=== PATIENT | female | born 1945 | race African-American/Black ===

== ENCOUNTER → 2017-01-30 | Outpatient (CLI) | payer OTHER ==
[~2017-01-30] MED LIST: ADULT LOW DOSE81 MG PO; ALEVE220 M1 PO; ANTIVERT25 MG PO; ASPIRIN81 M2 PO; BYSTOLIC 5 MG5 M1 PO; CEPACOL SORE T1 EAC7 PO; COD LIVER OIL1 EAC4 PO; CYMBALTA60 MG PO; FISH OIL 1,0001 EAC5 PO; HYDROCODON-ACE1 EAC5 PO; HYDROCODON-ACE1 EAC7 PO; HYDROCODON-ACE1 EAC8 PO; LEVOTHYROXINE 0.1 MG PO; LISINOPRIL10 MG PO; LOPRESSOR25 PO; MAG-AL PLUS SUS30 ML PO; MECLIZINE HCL12.5 MG PO; METHIMAZOLE5 MG; MULTIVITAMINS PO; NABUMETONE 500500 M1 PO; NAPROSYN500 MG PO; NEURONTIN 300300 M1 PO; NORCO 10-325 T1 EACH; NORCO 5-325 TA1 EACH PO; NORVASC 5 MG TAB5 MG PO; ONDANSETRON ODT4 MG SUBLING; OXYCONTIN10 M1 PO; PERCOCET 5-3251 EACH PO; PREDNISONE 20 M20 MG PO; RANITIDINE 150150 M1 PO; RANITIDINE HCL300 M1 PO; ROBAXIN 750 MG750 M1 PO; SYNTHROID25 MCG PO; SYNTHROID75 MCG PO; TAPAZOLE5 MG PO; TRAMADOL 50 MG50 MG PO; TRAMADOL HCL50 MG PO; TRAVATAN Z5 ML OPHTHALMIC; TUMS PO; TYLENOL325 MG PO; VITAMIN B-12100 MC1 PO; VITAMIN D1000 UNI1 PO; VITAMIN D32000 UNIT PO; VITAMIN E400 UNIT PO; ZANTAC 150MG T150 M1 PO; ZOFRAN ODT4 MG PO; ZOFRAN4 MG PO; ZYRTEC10 M2 PO
== END ==
LOC: RAD 02:20
DX: Z12.31 Encounter for screening mammogram for malignant neoplasm of breast (principal)

== ENCOUNTER → 2017-04-16 | Outpatient (CLI) | payer OTHER | LOC: RAD 14:09 | DX: Z00.01 Encounter for general adult medical examination with abnormal findings (principal); M19.042 Primary osteoarthritis, left hand ==

== ENCOUNTER → 2017-07-29 | Outpatient (CLI) | payer OTHER | LOC: CAT 10:47 | DX: R91.1 Solitary pulmonary nodule (principal) ==

== ENCOUNTER → 2018-02-06 | Outpatient (CLI) | payer OTHER | LOC: RAD 01:08 | DX: Z12.31 Encounter for screening mammogram for malignant neoplasm of breast (principal) ==

== ENCOUNTER 2018-02-26 16:47 | Emergency (ER) | payer OTHER ==
[~2018-02-26] VITALS: Ht 165.1 cm; Wt 94.8 kg
== END 2018-02-26 19:52 | disposition home or self-care (01) ==
LOC: ER 16:47
DX: G43.909 Migraine, unspecified, not intractable, without status migrainosus (principal); I10 Essential (primary) hypertension; E03.9 Hypothyroidism, unspecified; K21.9 Gastro-esophageal reflux disease without esophagitis; Z88.8 Allergy status to other drugs, medicaments and biological substances

== ENCOUNTER → 2018-05-19 | Outpatient (CLI) | payer OTHER | LOC: RAD 12:18 | DX: R59.1 Generalized enlarged lymph nodes (principal) ==

== ENCOUNTER 2019-02-20 19:49 | Emergency (ER) | payer OTHER ==
[~2019-02-20] VITALS: Ht 165.1 cm; Wt 94.8 kg
[2019-02-20 22:10] VITALS: BP 194/101
== END 2019-02-20 22:10 | disposition home or self-care (01) ==
LOC: ER 19:49
DX: G43.909 Migraine, unspecified, not intractable, without status migrainosus (principal); I10 Essential (primary) hypertension; E03.9 Hypothyroidism, unspecified; K21.9 Gastro-esophageal reflux disease without esophagitis; G47.30 Sleep apnea, unspecified; Z90.710 Acquired absence of both cervix and uterus; Z85.528 Personal history of other malignant neoplasm of kidney; Z90.5 Acquired absence of kidney; Z86.73 Personal history of transient ischemic attack (TIA), and cerebral infarction without residual deficits; Z88.8 Allergy status to other drugs, medicaments and biological substances

== ENCOUNTER → 2019-03-11 | Outpatient (CLI) | payer OTHER | LOC: RAD 02:44 | DX: Z12.31 Encounter for screening mammogram for malignant neoplasm of breast (principal) ==

== ENCOUNTER → 2019-04-01 | Outpatient (CLI) | payer OTHER ==
[~2019-04-01] VITALS: Ht 165.1 cm; Wt 96.2 kg
[~2019-04-01] MED LIST changes: +ASPIR 8181 MG PO; +NORVASC5 MG PO; +RANITIDINE HCL300 MG PO; +SYNTHROID125 MC1 PO; +XALATAN2.5 ML OPHTHALMIC
--- NOTE | 2019-04-03 08:29 | P ---
[facility] [place] [address] PROCEDURE REPORT Name: MARIA A DE LA CRUZ Room #: REG [facility]#: [id number] Admission: 04/01/19 ������������������ Attend Phys: Gabriel Johnston Discharge: ������������������ Date of : 47 Report #: [id number] THIS REPORT FOR: //name// CC: Gabriel Moran MD DATE OF SERVICE: 04/01/2019 PROCEDURE PERFORMED: Colonoscopy with polypectomies. HISTORY OF PRESENT ILLNESS: The patient is a 73-year-old female who presents today for routine screening colonoscopy. She denies any symptoms. No family history of colon cancer. DESCRIPTION OF PROCEDURE: The risks and benefits of the procedure were explained to the patient, those risks including but not limited to bleeding, perforation and the risk of sedation. She understood these risks and gave informed consent. Sedation was given using propofol per Anesthesia. Next, a digital rectal exam was initially performed, which was normal. Next, using a standard Olympus colonoscope, the scope was placed in the patient's anus and advanced under direct vision to the cecum. The overall prep was excellent. In the cecum, there was a 1 cm partially pedunculated polyp. This was removed by snare cautery, otherwise normal. The ileocecal valve was normal. The ascending, transverse and descending colon were normal. In the sigmoid colon, there was a 5 mm sessile polyp. This was removed by cold forceps. The rectal mucosa was normal. On retroflexion, no abnormalities were noted. The scope was then withdrawn and the procedure terminated. The patient tolerated the procedure well. IMPRESSION: 1. Two colonic polyps. 2. Otherwise, normal colonoscopy. RECOMMENDATIONS: 1. Await biopsy results. 2. Repeat colonoscopy in 5 years. Thank you for allowing me to participate in her care. ��������������������������������������������� <ELECTRONICALLY SIGNED> ���������������������������������������� By: Gabriel Aparicio MD ��������������������������������������������� 04/03/19 0829 [id number] Gabriel Aparicio MD /nt
--- NOTE | 2019-04-03 10:06 | PATH ---
[facility] [place] [address] PATHOLOGY RPT PROCEDURE Name: MARIA A HICKEY Osmin Room #: REG CORY Reyes.#: [id number] ������������������ Admission: 04/01/19 ������������������ Date of : 47 Discharge: Report #: [id number] Path Case #: [id number] [facility] Accession Number: [id number] . 01 Material submitted: . PART A: cecum - POLYP AT CECUM PART B: colon - BX POLYP AT SIGMOID COLON. Modifiers: sigmoid . 01 Clinical history: . Pre-OP DX: Screening Post-OP DX: Colon polyps . 02 Diagnosis: A. 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 - Negative for high-grade dysplasia. . B. Polyp, at sigmoid colon, endoscopic biopsy: - Compatible with a hyperplastic polyp and a lymphoid aggregate. . (IUV:mary; 04/02/2019) MBR/04/02/2019 . 02 Electronically signed: . Jeanie Guajardo MD, Pathologist NPI- [id number] . 01 Gross description: . A. Received in formalin labeled "Maria A Hickey, polyp at cecum," is a 0.8 x 0.7 x 0.7 cm polypoid piece of juarez soft tissue. The presumed margin is inked and the tissue is sectioned perpendicular to the margin and submitted in its entirely in cassette A1 and A2. . B. Received in formalin labeled "Maria A Hickey, BX polyp at sigmoid colon," are 2 segments of juarez soft tissue measuring 0.7 x 0.2 x 0.2 cm in aggregate dimensions and ranging from 0.3 to 0.4 cm in maximum dimension. The specimen is submitted entirely in cassette B1. (TSD; 04/01/2019) TOB/TOB . 02 Pathologist provided ICD-10: D12.0, K63.5 . 02 CPT . 126465, 676421 Specimen Comment: A courtesy [place] of [place] [address] PATHOLOGY RPT PROCEDURE Name: MARIA A HICKEY [id number] ������������������ Admission: 04/01/19 ������������������ Date of : 47 Discharge: Report #: [id number] Path Case #: [id number] Specimen Comment: [phone], . Specimen Comment: Report sent to / DR HATHAWAY Specimen Comment: A duplicate report has been generated due to demographic updates. Performed at: [address] [facility], [place], [place] [id number] MD Jeffy Padilla MD Phone: [phone] Performed at: [address] [facility] [id number] MD Jeanie Guajardo MD Phone: [phone]
== END | disposition home or self-care (01) ==
LOC: GI 09:25
DX: Z12.11 Encounter for screening for malignant neoplasm of colon (principal); D12.0 Benign neoplasm of cecum; K63.5 Polyp of colon; I10 Essential (primary) hypertension; K21.9 Gastro-esophageal reflux disease without esophagitis; G43.909 Migraine, unspecified, not intractable, without status migrainosus; Z98.890 Other specified postprocedural states; Z85.528 Personal history of other malignant neoplasm of kidney; Z90.5 Acquired absence of kidney; Z90.710 Acquired absence of both cervix and uterus; Z98.41 Cataract extraction status, right eye; Z98.51 Tubal ligation status; Z86.73 Personal history of transient ischemic attack (TIA), and cerebral infarction without residual deficits; Z90.89 Acquired absence of other organs; Z79.82 Long term (current) use of aspirin; Z79.899 Other long term (current) drug therapy; Z88.8 Allergy status to other drugs, medicaments and biological substances
CPT/HCPCS: 62110; 62900

== ENCOUNTER → 2019-06-01 | Outpatient (CLI) | payer OTHER | LOC: CAT 14:48 | DX: R91.8 Other nonspecific abnormal finding of lung field (principal); R59.1 Generalized enlarged lymph nodes; Z88.8 Allergy status to other drugs, medicaments and biological substances ==

== ENCOUNTER 2020-01-01 06:07 | Emergency (ER) | payer OTHER ==
[~2020-01-01] VITALS: Ht 165.1 cm; Wt 96.2 kg
[2020-01-01 07:18] LABS: ABSOLUTE NEUTROPHILS 2.7 thou/uL (1.4-8.2); BASOPHILS 0.9 % (0.0-2.0); EOSINOPHILS 2.3 % (0.0-3.0); HEMATOCRIT 40.1 % (37.0-47.0); HEMOGLOBIN 12.8 gm/dL (12.0-15.0); LYMPHOCYTES 32.1 % (24.0-44.0); MCH 26.9 pg (26.0-34.0); MCHC 31.8 g/dL (28.0-37.0); MCV 84.5 fL (80.0-100.0); MONOCYTES 5.9 % (1.0-8.0); PLATELET COUNT 229 thou/uL (150-400); POLYS 58.8 % (36.0-66.0); RBC 4.75 mil/uL (4.20-5.00); RDW 17.5 % (10.5-14.5); WBC 4.5 thou/uL (4.0-11.0)
[2020-01-01 07:24] LABS: CALCIUM 9.1 mg/dL (8.5-10.1); CREATININE 0.8 mg/dL (0.6-1.0)
[2020-01-01 07:29] LABS: POTASSIUM 4.4 mmol/L (3.5-5.1)
[2020-01-01] MEDS ORDERED: BUTALB-APAP-CA1 EACH PO (08:51)
[2020-01-01] MEDS ORDERED: COMPAZINE10 M2 PO (08:51)
[2020-01-01 09:09] VITALS: BP 150/77
== END 2020-01-01 09:10 | disposition home or self-care (01) ==
LOC: ER 06:07
PROVIDERS: Emergency Medicine
DX: R51 Headache (principal); R11.2 Nausea with vomiting, unspecified; I10 Essential (primary) hypertension; K21.9 Gastro-esophageal reflux disease without esophagitis; G47.30 Sleep apnea, unspecified; Z90.49 Acquired absence of other specified parts of digestive tract; Z90.710 Acquired absence of both cervix and uterus; Z86.73 Personal history of transient ischemic attack (TIA), and cerebral infarction without residual deficits; Z98.51 Tubal ligation status; Z90.5 Acquired absence of kidney; Z88.8 Allergy status to other drugs, medicaments and biological substances

== ENCOUNTER → 2020-04-05 | Outpatient (CLI) | payer OTHER ==
[~2020-04-05] MED LIST changes: +BUTALB-APAP-CA1 EACH PO; +COMPAZINE10 M2 PO
== END ==
LOC: BC 12:18
DX: Z12.31 Encounter for screening mammogram for malignant neoplasm of breast (principal)

== ENCOUNTER → 2020-05-12 | Outpatient (CLI) | payer OTHER | LOC: CAT 14:04 | PROVIDERS: ATTEND Pediatrics | DX: R91.8 Other nonspecific abnormal finding of lung field (principal); J98.4 Other disorders of lung; K76.89 Other specified diseases of liver ==

== ENCOUNTER → 2020-05-24 | Outpatient (CLI) | payer OTHER | LOC: SJCVC 13:55 | DX: I10 Essential (primary) hypertension (principal); R00.1 Bradycardia, unspecified; E78.00 Pure hypercholesterolemia, unspecified; E78.1 Pure hyperglyceridemia; G47.33 Obstructive sleep apnea (adult) (pediatric); R91.1 Solitary pulmonary nodule; Z79.899 Other long term (current) drug therapy; Z86.73 Personal history of transient ischemic attack (TIA), and cerebral infarction without residual deficits ==

== ENCOUNTER → 2020-11-01 | Outpatient (CLI) | payer OTHER | LOC: RAD 13:06 | PROVIDERS: ATTEND Nurse Practitioner | DX: M51.16 Intervertebral disc disorders with radiculopathy, lumbar region (principal); M48.061 Spinal stenosis, lumbar region without neurogenic claudication; M43.26 Fusion of spine, lumbar region ==

== ENCOUNTER → 2020-11-22 | Outpatient (CLI) | payer OTHER ==
[~2020-11-22] VITALS: Ht 292.1 cm; Wt 96.2 kg
[~2020-11-22] MED LIST changes: +FISH OIL 1,001000 M3 PO; +HAIR SKIN NAIL1 EACH PO; +IBUPROFEN200 M1 PO; +MIRALAX119 GM PO; +MULTI VITAMIN1 EACH PO; +NOXIFOL-D32500 UNIT PO; +TOPROL XL50 MG PO; +VITAMIN B-121000 MC2 PO; +VITAMIN C1000 MG PO
--- NOTE | ~2020-11-22 | HPC ---
[facility] [place] [address] PAIN MANAGEMENT CONSULTATION Name: MARIA A DE LA CRUZ Room #: REG CORY Louise#: [id number] Admission: 11/22/20 Attend Phys: Nick Peña DO Discharge: Date of : 47 Report #: [id number] THIS REPORT FOR: cc: Yojana Acevedo DNP, Mary E. DNP Johnson, James E. DO ~ DATE OF SERVICE: 11/22/2020 REFERRING PHYSICIAN: KARELY Gant CHIEF COMPLAINT: Low back pain, bilateral lower extremity pain with paresthesias. HISTORY OF PRESENT ILLNESS: As you know, the patient is a 75-year-old female who reports onset of low back pain, bilateral lower extremity pain that began on 10/02/2020. The patient denies injury or trauma that may have led to symptom development. She states that she trialed conservative treatment, such as ywse-ftl-zfckrne medications, rest, and relaxation, but did not note much in the way of improvement. She reports longstanding low back pain, status post fusion for L4-L5 lumbar radiculopathy, which was performed in 2012. She stated that this new onset of symptoms began without inciting injury or trauma and progressively worsened. She sought evaluation through her primary care team who trialed initially prednisone therapy and sent her for CT scan of the lumbar spine. The findings were such, the patient was then referred to our clinic, as it was noted she has severe central canal stenosis at the L2-L3 level, the area just above her fusion. The patient reports today her pain is constant. She describes the pain as aching and tender, places current pain score 9/10, daily average at 8-9/10, worst pain has been is 9/10. The patient states that bending down, walking, and standing exacerbates symptoms and improves with lying down. She has been referred to our service to discuss treatment options for severe central canal stenosis. PAST MEDICAL HISTORY: 1. Hypertension. 2. Chronic kidney disease. 3. Hypothyroidism. 4. GERD. 5. Degenerative joint disease. 6. Osteoarthritis. 7. History of stroke with minimal residual deficits. 8. Chronic low back pain, status post fusion. 9. Seasonal allergies. PAST SURGICAL HISTORY: [facility] [address] [place] [address] PAIN MANAGEMENT CONSULTATION Name: MARIA A DE LA CRUZ [id number] Admission: 11/22/20 Attend Phys: Nick Peña DO Discharge: Date of : 46 Report #: [id number] 1. Fusion of L4-L5 in 2012. 2. Right leg surgery. 3. Bilateral eye surgery. 4. Thyroid surgery. 5. Kidney surgery. 6. Breast biopsy. 7. Hysterectomy. SOCIAL HISTORY: The patient denies tobacco, alcohol, IV or illicit drug use. She retired in 06/2006. She is receiving disability income. She is not in litigation in regards to pain. She is unaccompanied at today's visit. REVIEW OF SYSTEMS: Positive for eye disease, wearing corrective eyewear, cataracts, hearing loss with tinnitus, mouth sores, shortness of breath with walking or lying flat, constipation, rectal bleeding, history of stroke with no residual deficits, thyroid disease, heat and cold intolerance, and low back pain. All other review of systems negative per 12-point review of systems other than those listed in history of present illness. Pain impact score 48/70 indicating moderate to severe interference of daily activities secondary to pain. ALLERGIES: LOSARTAN. CURRENT MEDICATIONS: Ibuprofen 200 mg 4 times a day, tramadol 50 mg 3 times a day, ascorbic acid 1 tab per day, MiraLax 17 grams per day, multivitamin 1 tab per day, cyanocobalamin 1000 mcg per day, omega-3 fish oil 1200 mg once a day, metoprolol 50 mg once a day, latanoprost 1 drop each eye per day, vitamin E 400 units once a day, levothyroxine 125 mcg per day, and aspirin 81 mg per day. IMAGING: CT of the lumbar spine obtained on 11/01/2020 shows postoperative changes of posterior fusion at the L4-L5 level. There is a grade 1 anterolisthesis at this level. At L3-L4, there is grade 1 anterolisthesis. There appears to be severe central canal stenosis at L2-L3 due to a combination of degenerative changes. PQRS: The patient has known arthritic changes of the lumbar spine, reports bilateral hip osteoarthritis. No rheumatoid arthritis. Places current pain score at 8/10. She is a fall risk, has not had a fall in last 3 months, but does use a cane for ambulation. She is not on blood thinners, but is treated for hypertension. She is not on opioids and has a low opiate addiction potential. Pain impact score 48/70, mfvwfzcq-fb-bilijy interference of daily activities secondary to pain. PHYSICAL EXAMINATION: VITAL SIGNS: Blood pressure 145/73, pulse 57, respiratory rate 18 and unlabored. The patient is 98% on room air. Height 5 feet 5 inches tall, weight [facility] [address] [place] [address] PAIN MANAGEMENT CONSULTATION Name: MARIA A DE LA CRUZ Room #: REG Pretty Reyes#: [id number] Admission: 11/22/20 Attend Phys: Nick Peña DO Discharge: Date of : 46 Report #: [id number] 212 pounds. HEENT: Normocephalic, atraumatic. Pupils equal, round and reactive to light. Extraocular muscles are intact. The patient is wearing a mask in compliance with COVID-19 regulations. LUNGS: Appear clear. She is able to complete sentences without difficulty. No audible wheezing or cough. CARDIOVASCULAR: Appears regular. No appreciable gallop, no rub. ABDOMEN: Soft, obese, normoactive bowel sounds. EXTREMITIES: Show no clubbing, no cyanosis. No appreciable edema. MUSCULOSKELETAL: Lower extremity strength appears symmetrical, but deconditioned. She is intact to light touch from L1 through S2 dermatomes. Seated straight leg raising negative. Supine straight leg raising is positive on the right. Dom's test negative. Modified Gaenslen's positive for axial low back pain. Ankle clonus negative. Babinski is negative. Deep tendon reflexes are decreased, but symmetrical. ASSESSMENT: 1. Symptomatic lumbar radiculopathy. 2. Severe central canal stenosis of lumbar spine. 3. Displacement of lumbar intervertebral disk with radiculopathy. 4. Lumbosacral spondylosis with radiculopathy. 5. Lumbar degeneration. 6. Failed lumbar spine surgery. 7. Chronic intractable pain. PLAN: 1. The patient has been referred to our clinic to discuss the options for treatment for suspected lumbar radiculopathy. We have reviewed the patient's CT examination, which unfortunately shows severe central canal stenosis at L2-L3 level secondary to degenerative changes. There is an anterolisthesis at L3-L4 and fusion at L4-L5. The symptoms the patient is experiencing do appear to be related to the L2-L3 level. We discussed the findings and how they correlate to her current symptoms. The following was discussed with the patient today for treatment options. We discussed with the patient today treatment options would include physical therapy, stretching exercises, and concerted effort at weight loss. We discussed suggestions in medication management, adding neuropathic pain medications, and a consistent nonsteroidal anti-inflammatory. We discussed lumbar epidural injections under fluoroscopic guidance for which the patient was referred to our clinic. We also discussed surgical options, which given the severity of the stenosis at the L2-L3 level, will likely be necessary. After reviewing risks and benefits of all proposed treatment options, the patient chose to begin with an epidural injection under fluoroscopic guidance. The patient has been advised risks and benefits of a lumbar epidural injection. [address] [address] PAIN MANAGEMENT CONSULTATION Name: MARIA A DE LA CRUZ Room #: REG CORY Gil#: [id number] Admission: 11/22/20 Attend Phys: Nick Peña DO Discharge: Date of : 46 Report #: [id number] These risks include but are not necessarily limited to bleeding, bruising, infection, worsening pain, no relief of pain, also risk of temporary or permanent muscle weakness, temporary or permanent nerve damage, possible paralysis, and . The patient states understood and wished to proceed. 2. No medication changes made at today's visit. The patient will continue current medical therapy as prior prescribed. 3. We plan to see the patient back in followup visit in approximately 1 month. At that time, review the efficacy of today's epidural injection and determine next in the series of epidural injections would be recommended. 4. We wish to thank nurse practitioner, Yojana Acevedo, for the opportunity to see this patient in consultation. We will keep you apprised of response to treatment as we address suspected lumbar radicular symptoms secondary to severe central canal stenosis. Again, we wish to thank you for the opportunity to see the patient in consultation. PROCEDURE NOTE DESCRIPTION OF PROCEDURE: L2-L3 interlaminar epidural steroid injection under fluoroscopic guidance. This is the first procedure of the first series that the patient is undergoing. After obtaining written consent, the patient was taken back to the fluoroscopy suite, placed in a prone position with pillow under the abdomen to decrease lumbar lordosis. The skin overlying the lumbosacral area was then prepped and draped in aseptic fashion. The L2-L3 vertebral interspace was then identified by AP fluoroscopy. The skin and subcutaneous tissue overlying the target site of injection was anesthetized with 3 mL 1% lidocaine. A 20-gauge 4-1/2-inch Tuohy needle was then advanced under fluoroscopic guidance towards the epidural space using a parasagittal approach. The epidural space was identified using loss of resistance to air technique. After negative aspiration for heme or cerebrospinal fluid, a total of 1 mL of Omnipaque was injected. A lumbar epidurogram was confirmed using both AP and lateral fluoroscopy. After negative aspiration for heme or cerebrospinal fluid, 5 mL of a solution containing 2 mL 40 mg per mL, 80 mg total triamcinolone along with 3 mL of lidocaine 1% was injected in increments. Contrast spread was noted posterior epidural space. The needle was then retracted approximately half way and needle tract flushed with 1 mL of 1% lidocaine. Needle was then removed. There were no apparent sensory or motor deficits in the lower extremity following the procedure. A sterile bandage was placed over the injection site. The heart rate, pulse, oximetry and blood pressure were continuously monitored after the procedure. There were no apparent complications. The patient tolerated the procedure well and was carefully escorted to the recovery room in [address] [address] PAIN MANAGEMENT CONSULTATION Name: MARIA A DE LA CRUZ Room #: REG CLPretty [facility]y#: [id number] Admission: 11/22/20 Attend Phys: Nick Peña DO Discharge: Date of : 46 Report #: [id number] stable condition. There were no apparent complications. After meeting discharge criteria, the patient was then discharged home. By: 1658 1741 Nick Peña DO /nt
[2020-11-22 13:37] VITALS: BP 145/73
--- NOTE | 2020-11-22 14:17 | NUR ---
Pain Clinic Assessment: 1. History of Osteoarthritis: BACK History of Rheumatoid Arthritis: 2. Height: 5 ft. 55 in. 292.1 cm. Weight: 212.0 lb. oz. 96.163 kg. Patient's BMI: 11.3 3. Vital Signs: BP: 145/73 Pulse: 57 Resp: 18 Temp: 02 Sat: 98 ECG Mon: 4. Pain Intensity: 8 5. Fall Risk: Dizziness: Y Needs help standing or walking: Y Fallen in the last 3 months: N Fall risk comments: 6. Patient on Blood Thinner: None 7. History of Hypertension: Y 8. Opioid Therapy greater than 6 weeks: N Opiate Contract Signed: 9. Risk Assessment Tool Provided: 0 LOW RISK 10. Functional Assessment Tool: 11. Recreational Drug Use: Never Drug Type: Tobacco Use: Never Smoker Tobacco Type: Amount or Packs/day: How Many Years: Alcohol Use: No Frequency: Quant:
== END | disposition home or self-care (01) ==
LOC: PAIN 06:58
PROVIDERS: ATTEND Anesthesiology Pain Medicine
DX: M51.16 Intervertebral disc disorders with radiculopathy, lumbar region (principal); M48.061 Spinal stenosis, lumbar region without neurogenic claudication; M47.27 Other spondylosis with radiculopathy, lumbosacral region; M96.1 Postlaminectomy syndrome, not elsewhere classified; G89.29 Other chronic pain; I12.9 Hypertensive chronic kidney disease with stage 1 through stage 4 chronic kidney disease, or unspecified chronic kidney disease; N18.9 Chronic kidney disease, unspecified; E03.9 Hypothyroidism, unspecified; M19.90 Unspecified osteoarthritis, unspecified site; K21.9 Gastro-esophageal reflux disease without esophagitis; Z98.890 Other specified postprocedural states; Z79.899 Other long term (current) drug therapy; Z90.710 Acquired absence of both cervix and uterus

== ENCOUNTER → 2021-01-03 | Outpatient (CLI) | payer OTHER ==
[~2021-01-03] VITALS: Ht 165.1 cm; Wt 96.2 kg
[2021-01-03 13:21] VITALS: BP 137/81
--- NOTE | 2021-01-03 13:42 | NUR ---
Pain Clinic Assessment: 1. History of Osteoarthritis: BACK History of Rheumatoid Arthritis: 2. Height: 5 ft. 5 in. 165.1 cm. Weight: 212.0 lb. oz. 96.163 kg. Patient's BMI: 35.3 3. Vital Signs: BP: 137/81 Pulse: 73 Resp: 16 Temp: 02 Sat: 99 ECG Mon: 4. Pain Intensity: 8 5. Fall Risk: Dizziness: N Needs help standing or walking: Y Fallen in the last 3 months: N Fall risk comments: 6. Patient on Blood Thinner: None 7. History of Hypertension: Y 8. Opioid Therapy greater than 6 weeks: N Opiate Contract Signed: 9. Risk Assessment Tool Provided: 0 LOW RISK 10. Functional Assessment Tool: 11. Recreational Drug Use: Never Drug Type: Tobacco Use: Never Smoker Tobacco Type: Amount or Packs/day: How Many Years: Alcohol Use: No Frequency: Quant:
--- NOTE | 2021-01-04 11:53 | HPC ---
[facility] [place] [address] PAIN MANAGEMENT CONSULTATION Name: MARIA A DE LA CRUZ Room #: REG CORY Louise#: [id number] Admission: 01/03/21 Attend Phys: Nick Peña DO Discharge: Date of : 46 Report #: [id number] THIS REPORT FOR: cc: Yojana Acevedo DNP, Mary E. DNP Johnson, James E. DO ~ DATE OF SERVICE: 01/03/2021 REFERRING PHYSICIAN: Yojana Acevedo, Nursing Practitioner CHIEF COMPLAINT: Low back pain, bilateral lower extremity pain with paresthesias. HISTORY OF PRESENT ILLNESS: As you know, the patient is a 75-year-old female reporting acute onset of low back pain, bilateral lower extremity pain that began on 10/02/2020. The patient reported no injury or trauma. She was seen in consultation. We reviewed the patient's MRI, which showed severe central canal stenosis at L2-L3 area just above her previous fusion. Unfortunately, the patient was seen in our clinic provided a lumbar epidural injection under fluoroscopic guidance to address this issue, but unfortunately, her symptoms have begun to return. She reports about a 80% improvement in symptoms lasting for about 3 weeks ago with recurrence of pain. She now places pain score at 8/10. States the pain as constant, aching, numbness and tingling when describing symptoms exacerbated with walking and bending. She returns today to discuss further treatment. ALLERGIES: LOSARTAN. CURRENT MEDICATIONS: See chart. SOCIAL HISTORY: The patient denies tobacco, alcohol, IV or illicit drug use. She retired in 2005. She is accompanied by her significant other present in room today. IMAGING: No new imaging available. PQRS shows the patient has known arthritic changes of the lumbar spine, bilateral hips. No rheumatoid arthritis. She is placing pain intensity today at 8/10. She has a fall risk, but has not had a fall in last 3 months. She is using a cane for ambulation and balance. She is not on blood thinners, but is treated for hypertension. She is not on chronic opioids, has a low opioid addiction potential. Pain impact is 48/70, severe interference of daily activities secondary to pain. PHYSICAL EXAMINATION: VITAL SIGNS: Blood pressure 137/81, pulse is 73, respiratory rate 16 and unlabored. The patient is 99% on room air. Height 5 feet 5 inches tall, weight 212 pounds, BMI calculated 35.3. [place] [address] PAIN MANAGEMENT CONSULTATION Name: MARIA A DE LA CRUZ Room #: REG CORY Louise#: [id number] Admission: 01/03/21 Attend Phys: Nick Peña DO Discharge: Date of : 46 Report #: [id number] GENERAL: Well-developed, well-nourished, well-hydrated 75-year-old female appearing stated age, pain is rated 8/10. HEENT: Normocephalic, atraumatic. Pupils are round and responsive. The patient deemed a good historian. She is wearing a mask in compliance with COVID-19 regulations. EXTREMITIES: Show no clubbing, no cyanosis, no edema. MUSCULOSKELETAL: Seated straight leg raising negative. Supine straight leg raising is positive on the right. Dom's test is negative, intact to light touch from L1 through S2 dermatomes. Gait appears antalgic favoring right lower extremity. ASSESSMENT: 1. Symptomatic lumbar radiculopathy. 2. Severe central canal stenosis of the lumbar spine. 3. Displacement of lumbar intervertebral disk with radiculopathy. 4. Lumbosacral spondylosis with radiculopathy. 5. Lumbar degeneration. 6. Failed lumbar spine surgery. 7. Chronic intractable pain. PLAN: 1. The patient returns today in followup visit having noted 80% improvement in overall pain lasting for nearly 3 weeks with the epidural injection provided at last visit. The patient and I spent time today reviewing her imaging study once again, which shows severe central canal stenosis at the levels above her fusion. This appears to be the source of the patient's pain again today. We discussed the treatment options, she chose to undergo lumbar epidural injection. The patient was advised risks and benefits of a lumbar epidural injection. These risks include but are not necessarily limited to bleeding, bruising, infection, worsening pain, no relief of pain, also risk of temporary or permanent muscle weakness, temporary or permanent nerve damage, possible paralysis and . The patient states understood and wished to proceed. 2. No medication changes made at today's visit. The patient will continue current medical therapy as prior prescribed. 3. We plan to see the patient back in followup visit on an as needed basis for the third and final epidural injection in the 6 months. We are hopeful the patient will see good and prolonged benefit with this epidural injection allowing her to delay the use of the third and final epidural injection. DESCRIPTION OF PROCEDURE: L3-L4 interlaminar epidural steroid injection under fluoroscopic guidance. PROCEDURE: Lumbar epidural steroid injection. This is the second procedure of the first series that the patient is undergoing. [address] [address] PAIN MANAGEMENT CONSULTATION Name: MARIA A DE LA CRUZ Room #: REG CLPretty Gil#: [id number] Admission: 01/03/21 Attend Phys: Nick Peña DO Discharge: Date of : 47 Report #: [id number] After obtaining written consent, the patient was taken back to the fluoroscopy suite, placed in a prone position with pillow under the abdomen to decrease lumbar lordosis. The skin overlying the lumbosacral area was then prepped and draped in aseptic fashion. The L3-L4 vertebral interspace was then identified by AP fluoroscopy. The skin and subcutaneous tissue overlying the target site of injection was anesthetized with 3 mL 1% lidocaine. A 20-gauge Tuohy needle was then advanced under fluoroscopic guidance towards the epidural space using a midline approach. The epidural space was identified using loss of resistance to air technique. After negative aspiration for heme or cerebrospinal fluid, a total of 1 mL of Omnipaque was injected. A lumbar epidurogram was confirmed using both AP and lateral fluoroscopy. After negative aspiration for heme or cerebrospinal fluid, 5 mL of a solution containing 2 mL 40 mg per mL, 80 mg total triamcinolone along with 3 mL of lidocaine 1% was injected in increments. Contrast spread was noted posterior epidural space. The needle was then retracted approximately half way and needle tract flushed with 1 mL of lidocaine. Needle was then removed. There were no apparent sensory or motor deficits in the lower extremity following the procedure. A sterile bandage was placed over the injection site. The heart rate, pulse, oximetry and blood pressure were continuously monitored after the procedure. There were no complications. The patient tolerated the procedure well and was carefully escorted to the recovery room in stable condition. There were no apparent complications. After meeting discharge criteria, the patient was then discharged home. <ELECTRONICALLY SIGNED> By: Nick Peña DO 01/04/21 1153 1610 1711 Nick Peña DO /nt
== END | disposition home or self-care (01) ==
LOC: PAIN 12-20 13:05
PROVIDERS: ATTEND Anesthesiology Pain Medicine
DX: M51.16 Intervertebral disc disorders with radiculopathy, lumbar region (principal); M47.27 Other spondylosis with radiculopathy, lumbosacral region; M48.061 Spinal stenosis, lumbar region without neurogenic claudication; M96.1 Postlaminectomy syndrome, not elsewhere classified; G89.29 Other chronic pain; I10 Essential (primary) hypertension; M19.90 Unspecified osteoarthritis, unspecified site; Z98.890 Other specified postprocedural states; Z79.899 Other long term (current) drug therapy; Z88.8 Allergy status to other drugs, medicaments and biological substances

== ENCOUNTER 2021-02-07 14:42 | Emergency (ER) | payer OTHER ==
[~2021-02-07] VITALS: Ht 165.1 cm; Wt 97.5 kg
[2021-02-07] MEDS ORDERED: ULTRAM 50MG TAB50 MG PO (15:28)
[2021-02-07 16:29] VITALS: BP 142/97
== END 2021-02-07 16:42 | disposition home or self-care (01) ==
LOC: ER 14:42
DX: M54.42 Lumbago with sciatica, left side (principal); M54.41 Lumbago with sciatica, right side; Z90.710 Acquired absence of both cervix and uterus; Z79.82 Long term (current) use of aspirin; Z79.899 Other long term (current) drug therapy; Z88.8 Allergy status to other drugs, medicaments and biological substances

== ENCOUNTER → 2021-02-14 | Outpatient (CLI) | payer OTHER ==
[~2021-02-14] MED LIST changes: +ULTRAM 50MG TAB50 MG PO
== END ==
LOC: MRI 14:14
PROVIDERS: ATTEND Nurse Practitioner Family
DX: M51.37 Other intervertebral disc degeneration, lumbosacral region (principal); M47.816 Spondylosis without myelopathy or radiculopathy, lumbar region; M48.061 Spinal stenosis, lumbar region without neurogenic claudication

== ENCOUNTER → 2021-03-22 | Outpatient (CLI) | payer OTHER | LOC: SJCVC 13:45 | PROVIDERS: ATTEND Internal Medicine Cardiovascular Disease | DX: Z01.818 Encounter for other preprocedural examination (principal); I10 Essential (primary) hypertension; E78.00 Pure hypercholesterolemia, unspecified; G47.33 Obstructive sleep apnea (adult) (pediatric); M48.00 Spinal stenosis, site unspecified; R91.1 Solitary pulmonary nodule; E11.9 Type 2 diabetes mellitus without complications; Z86.73 Personal history of transient ischemic attack (TIA), and cerebral infarction without residual deficits; Z79.82 Long term (current) use of aspirin; Z79.899 Other long term (current) drug therapy ==

== ENCOUNTER → 2021-03-28 | Outpatient (CLI) | payer OTHER | LOC: SJCVCIMAG 09:34 | PROVIDERS: ATTEND Internal Medicine Cardiovascular Disease | DX: Z01.810 Encounter for preprocedural cardiovascular examination (principal); R00.1 Bradycardia, unspecified; K21.9 Gastro-esophageal reflux disease without esophagitis; I10 Essential (primary) hypertension; R06.09 Other forms of dyspnea; R42 Dizziness and giddiness; Z86.73 Personal history of transient ischemic attack (TIA), and cerebral infarction without residual deficits; Z79.82 Long term (current) use of aspirin; Z79.899 Other long term (current) drug therapy ==

== ENCOUNTER → 2021-04-11 | Outpatient (CLI) | payer OTHER | LOC: ULTRA 12:44 | PROVIDERS: ATTEND Nurse Practitioner | DX: R22.1 Localized swelling, mass and lump, neck (principal) ==

== ENCOUNTER → 2021-04-14 | Outpatient (CLI) | payer OTHER | LOC: BC 10:38 | PROVIDERS: ATTEND Nurse Practitioner | DX: Z12.31 Encounter for screening mammogram for malignant neoplasm of breast (principal); N64.89 Other specified disorders of breast ==

== ENCOUNTER → 2021-06-07 | Outpatient (CLI) | payer OTHER | LOC: RAD 12:37 | PROVIDERS: ATTEND Pediatrics | DX: J98.4 Other disorders of lung (principal); R91.1 Solitary pulmonary nodule; M47.814 Spondylosis without myelopathy or radiculopathy, thoracic region; M77.8 Other enthesopathies, not elsewhere classified ==

== ENCOUNTER → 2021-06-20 | Outpatient (CLI) | payer OTHER | LOC: RAD 13:51 | DX: M43.26 Fusion of spine, lumbar region (principal); M47.816 Spondylosis without myelopathy or radiculopathy, lumbar region ==